=== PATIENT | male | born 1960 | race Caucasian/White ===

== ENCOUNTER 2018-09-27 15:29 | Outpatient (CLI) | payer OTHER ==
[2018-09-27 19:01] LABS: BASOPHILS % (AUTO) 0.3 %; EOSINOPHILS # (AUTO) 0.1 10^3/uL (0.0-0.7); EOSINOPHILS % (AUTO) 1.1 %; HGB - HEMOGLOBIN 14.8 g/dL (14.0-18.0); LYMPHOCYTES # (AUTO) 2.4 10^3/uL (1.5-3.5); LYMPHOCYTES % (AUTO) 41.9 %; MEAN CORPUSCULAR HEMOGLOBIN 29.5 pg (27.0-31.0); MEAN CORPUSCULAR VOLUME 89.3 fL (80.0-94.0); MEAN PLATELET VOLUME 7.2 fL (7.4-11.4); MONOCYTES # (AUTO) 0.4 10^3/uL (0.0-1.0); MONOCYTES % (AUTO) 7.7 %; NEUTROPHILS # (AUTO) 2.8 10^3/uL (1.5-6.6); PLT - PLATELET COUNT 301 10^3/uL (130-450); RED BLOOD COUNT 5.01 10^6/uL (4.70-6.10); RED CELL DISTRIBUTION WIDTH 13.7 % (12.0-15.0); WHITE BLOOD COUNT 5.7 x10^3/uL (4.8-10.8)
[2018-09-27 19:13] LABS: ALBUMIN 4.3 g/dL (3.2-5.5); ALBUMIN/GLOBULIN RATIO 1.3 (1.0-2.2); ALKALINE PHOSPHATASE 82 IU/L (42-121); ALT ALANINE AMINOTRANSFERASE 39 IU/L (10-60); AST ASPARTATE AMINOTRANSFERASE 27 IU/L (10-42); BILIRUBIN,TOTAL 0.8 mg/dL (0.2-1.0); BUN - BLOOD UREA NITROGEN 17 mg/dL (6-20); CALCIUM 9.2 mg/dL (8.5-10.3); CARBON DIOXIDE - CO2 24 mmol/L (21-32); CHLORIDE 100 mmol/L (101-111); CHOLESTEROL 236 mg/dL; CREATININE 0.8 mg/dL (0.6-1.2); GFR - MDRD 100 (>89); GLUCOSE 88 mg/dL (70-100); HDL CHOLESTEROL 47 mg/dL; LDL CHOLESTEROL,CALCULATED 168 mg/dL; LDL/HDL RATIO 3.6 (<3.6); SODIUM 136 mmol/L (135-145); TOTAL PROTEIN 7.5 g/dL (6.7-8.2); VLDL CHOLESTEROL 21 mg/dL
== END 2018-09-27 23:59 ==
LOC: LAB.WCP 15:29
PROVIDERS: ATTEND Family Medicine
DX: Z00.00 Encounter for general adult medical examination without abnormal findings (principal); Z12.5 Encounter for screening for malignant neoplasm of prostate
CPT/HCPCS: 36415; 80053; 80061; 83721; 84153; 84443; 85025

== ENCOUNTER 2018-10-14 09:11 | Outpatient (CLI) | payer BC, OTHER | END 2018-10-14 09:12 | disposition home or self-care (01) | LOC: RT 09:11 | PROVIDERS: ATTEND Orthopaedic Surgery | DX: Z01.818 Encounter for other preprocedural examination (principal); S76.112A Strain of left quadriceps muscle, fascia and tendon, initial encounter; M23.92 Unspecified internal derangement of left knee | CPT/HCPCS: 93005 ==

== ENCOUNTER 2019-12-01 08:00 | Outpatient (CLI) | payer BC, OTHER ==
[2019-12-01 18:30] LABS: BASOPHILS % (AUTO) 0.2 %; EOSINOPHILS # (AUTO) 0.1 10^3/uL (0.0-0.7); EOSINOPHILS % (AUTO) 0.8 %; HGB - HEMOGLOBIN 14.7 g/dL (14.0-18.0); LYMPHOCYTES # (AUTO) 2.3 10^3/uL (1.5-3.5); LYMPHOCYTES % (AUTO) 34.2 %; MEAN CORPUSCULAR HEMOGLOBIN 29.1 pg (27.0-31.0); MEAN CORPUSCULAR HGB CONC 32.5 g/dL (32.0-36.0); MEAN CORPUSCULAR VOLUME 89.3 fL (80.0-94.0); MEAN PLATELET VOLUME 9.7 fL (7.4-11.4); MONOCYTES # (AUTO) 0.5 10^3/uL (0.0-1.0); MONOCYTES % (AUTO) 7.4 %; NEUTROPHILS # (AUTO) 3.8 10^3/uL (1.5-6.6); NEUTROPHILS % (AUTO) 57.1 %; PLT - PLATELET COUNT 303 10^3/uL (130-450); RED BLOOD COUNT 5.06 10^6/uL (4.70-6.10); RED CELL DISTRIBUTION WIDTH 13.3 % (12.0-15.0); WHITE BLOOD COUNT 6.6 x10^3/uL (4.8-10.8)
[2019-12-01 18:52] LABS: ALBUMIN 4.5 g/dL (3.2-5.5); ALBUMIN/GLOBULIN RATIO 1.5 (1.0-2.2); ALKALINE PHOSPHATASE 78 IU/L (42-121); ALT ALANINE AMINOTRANSFERASE 37 IU/L (10-60); AST ASPARTATE AMINOTRANSFERASE 26 IU/L (10-42); BUN - BLOOD UREA NITROGEN 15 mg/dL (6-20); CALCIUM 9.2 mg/dL (8.5-10.3); CARBON DIOXIDE - CO2 24 mmol/L (21-32); CHLORIDE 103 mmol/L (101-111); CHOL/HDL RATIO 6.2 (<5.0); CHOLESTEROL 246 mg/dL; GFR - MDRD 77 (>89); GLUCOSE 100 mg/dL (70-100); HDL CHOLESTEROL 40 mg/dL; LDL CHOLESTEROL,CALCULATED 181 mg/dL; LDL/HDL RATIO 4.5 (<3.6); SODIUM 135 mmol/L (135-145); TOTAL PROTEIN 7.5 g/dL (6.7-8.2); VLDL CHOLESTEROL 25 mg/dL
== END 2019-12-01 23:59 | disposition home or self-care (01) ==
LOC: LAB.WCP 08:00
PROVIDERS: ATTEND Family Medicine
DX: R07.9 Chest pain, unspecified (principal); E78.5 Hyperlipidemia, unspecified; R97.20 Elevated prostate specific antigen [PSA]
CPT/HCPCS: 36415; 80053; 80061; 83721; 84153; 84484; 85025

== ENCOUNTER 2019-12-01 15:18 | Outpatient (CLI) | payer BC, OTHER ==
--- NOTE | 2019-12-02 08:38 | XRAY Report ---
Reason: CHEST PAIN Procedure Date: 12/01/2019 Accession Number: [id number] / [id number] Procedure: XR - Chest 2 View X-Ray CPT Code: 01458 Final Report FULL RESULT: EXAM: CHEST RADIOGRAPHY EXAM DATE: 12/01/2019 03:36 PM. CLINICAL HISTORY: Chest pain. COMPARISON: None. TECHNIQUE: 2 views. FINDINGS: Lungs/Pleura: No focal opacities evident. No pleural effusion. No pneumothorax. Normal volumes. Mediastinum: Cardiac silhouette is borderline enlarged. Mediastinal contour and primary vasculature are within normal limits. Other: None. IMPRESSION: 1. Borderline enlargement of the cardiac silhouette. 2. No acute cardiopulmonary abnormality. RADIA
== END 2019-12-01 15:19 | disposition home or self-care (01) ==
LOC: DI 15:18
PROVIDERS: ATTEND Family Medicine
DX: R07.9 Chest pain, unspecified (principal); I51.7 Cardiomegaly; E78.5 Hyperlipidemia, unspecified; R97.20 Elevated prostate specific antigen [PSA]
CPT/HCPCS: 36415; 71046; 80053; 80061; 84153; 84484; 85025

== ENCOUNTER 2020-02-01 08:00 | Outpatient (CLI) | payer BC, OTHER ==
--- NOTE | 2020-02-01 15:03 | XRAY Report ---
Reason: ACUTE BRONCHOSPASM Procedure Date: 02/01/2020 Accession Number: [id number] / [id number] Procedure: WCP - Chest 2 View X-Ray CPT Code: 63634 Final Report FULL RESULT: EXAM: CHEST RADIOGRAPHY EXAM DATE: 02/01/2020 09:53 AM. CLINICAL HISTORY: ACUTE BRONCHOSPASM, shortness of breath. COMPARISON: CHEST 2 VIEW 12/01/2019 3:28 PM. TECHNIQUE: 2 views. FINDINGS: Lungs/Pleura: No focal opacities evident. No pleural effusion. No pneumothorax. Normal volumes. Mediastinum: Heart and mediastinal contours are unremarkable. Other: None. IMPRESSION: Normal 2-view chest radiography. RADIA
== END 2020-02-01 23:59 | disposition home or self-care (01) ==
LOC: DI.WCP 08:00
PROVIDERS: ATTEND Family Medicine
DX: J98.01 Acute bronchospasm (principal)
CPT/HCPCS: 71046

== ENCOUNTER 2020-04-26 10:39 | Outpatient (CLI) | payer BC, OTHER | END 2020-04-26 23:59 | disposition home or self-care (01) | LOC: LAB.WCP 10:39 | PROVIDERS: ATTEND Family Medicine | DX: E29.8 Other testicular dysfunction (principal) | CPT/HCPCS: 36415; 84403 ==

== ENCOUNTER 2020-05-31 16:22 | Outpatient (CLI) | payer BC, OTHER ==
[2020-05-31 17:11] VITALS: BP 127/78
--- NOTE | 2020-05-31 17:11 | SLEEP CARE CONSULTATION ---
Information from patient questionnaire entered by Christina Santana. I have reviewed and concur with the information entered by Christina Santana. This document represents the service I personally performed and the decisions made by me, Olivia Menon ARNP. History of Present Illness Service Date and Time: 05/31/2020 1622 Reason for Visit: New patient, Previously diagnosed sleep apnea, sleep apnea on CPAP therapy Chief Complaint: reports: Unrefreshed sleep, Snoring, Excessive daytime sleepiness, Observed pauses in breathing, Frequent awakenings at night, Other (Recommended from warehouse coordinator). denies: Insomnia, Fatigue Date of Onset: 10+ years Usual bedtime: 0800 Time it takes to fall asleep: 30 minutes Snores at night: Yes Observed to quit breathing while asleep: Yes Sleeps alone due to snoring: No (sometimes) Number of times waking at night: 2 + Reasons for waking at night: reports: Choking, Snoring, Gasping for air, Bathroom Toss, Turn, or Twitch while sleeping: Yes Recalls having dreams: Yes Usually gets out of bed at: 1-2 pm Feels refreshed in the morning: No Morning headache: Yes (water helps; every day about an hour) Sleepy or fatigued during the day: Yes Ever fallen asleep while driving: No Takes day naps: Yes (nightly at work for 30 minutes) Dreams during day naps: No Prior sleep studies: Yes Year and Where: 2010 - [facility] Type of Sleep Study: Polysomnography Additional HPI information: TAYLOR CONNORS was diagnosed to have mild, AHI 5.1 with a marisol oxygen saturation of 86%, obstructive sleep apnea-hypopnea syndrome in 2010 at [facility]. His titration study showed good apnea control on 6 cm H2O. He was set up on CPAP but eventually stopped using it. He used it for a month before his surgery in 2018 on his back because the anesthesiologist told him he had to before he could have the surgery done. He then stopped using it again until his warehouse coordinator suggested he restart his CPAP use due to his heart arrhythmia of pause in his heart beats. He tried to use it about a month ago fro 2-3 days but the mask did not fit well to his face. He thinks this may be due to the 40 pounds he has gained over the last several years. He works at [employer] on 3rd shift and normally gets about 5 hours of sleep daily. He gets home about 6 AM and gets to sleep about 8 AM and then up again about 1-2 PM on work days. He will sleep until 3-4 on days off. He is about to stop working at [employer] in about 2 weeks. He is back for re-evaluation of his diagnosis and restarting of CPAP therapy as needed. - Parasomnia Symptoms Ever been unable to move upon waking from sleep: No Walks in sleep: No Talks in sleep: No Ever acted out dreams in sleep: No Ever felt weak in the knees when startled or emotional: No Bothered by creepy, crawly, restless sensations in legs: Yes (at night sometimes will wake him up; used to shake leg at night to sleep) Problems with memory or concentration: No Subjective Initial Conway Sleepiness Scale score: 8 (in 2010) Current [place] Sleepiness Scale score: 17 (in 2019) Past Medical History Past Medical History: reports: Arrythmia. denies: Hypertension, Claustrophobia, Congestive Heart Failure, Diabetes, Stroke, Coronary Heart Disease, Hypothyroidism, Anemia, Anxiety, Impotence, Depression, Mood disorder, GERD, Attention deficit Social History The patient's occupation is a [employer]. Patient is and lives in [place]. Have you smoked in the past 12 months: No Alcohol use: Yes Alcohol amount and frequency: 1-2 beers occasionally Caffeine use: Yes Caffeine amount and frequency: 3-4 cups a day Family History Family history of sleep disordered breathing: No Allergies and Home Medications Drug allergies reviewed: Yes (amoxicillin) Home medication list reviewed: Yes Allergy and home medication list: atorvastatin calcium 20 mg testosterone 50mg/5Gm 1 % daily (for last month) Review of Systems Weight gain over past 5 years: 40 Cardiovascular: reports: irregular heart rate or pulse (skips a beat once in a while). denies: high blood pressure, palpitations, chest pain, leg or foot swelling Respiratory: denies: shortness of breath Gastrointestinal: denies: heartburn, difficulty swallowing Urinary: denies: impotence Neurological: reports: headaches. denies: seizure, head trauma, speech dysfunction, gait or balance problems Psychiatric: denies: Attention Deficit Hyperactivity, anxiety, depression, mood disorder Ear/Nose/Throat: reports: sinus problems (sinus polyps removed many years ago), injury to nose (several broken noses when younger), wisdom teeth removed. denies: nasal congestion, nose bleeds, dry mouth/throat, hoarseness, tonsillectomy Endocrine: denies: thyroid disease Musculoskeletal: reports: joint pain, back pain, muscle pain or cramping Immunologic: denies: allergies to food or environment Physical Exam Blood Pressure: 127/78 Cuff size: long Heart Rate: 85 O2 Saturation: 98 Height: 5 ft 10 in Weight: 284 lb Body Mass Index: 40.7 BMI Classification: Morbidly Obese Neck circumference: 19.3 (inches) HEENT: No craniofacial malformation Nostrils: patent to airflow Turbinates: normal Septum: midline Mouth and throat: narrow oropharynx Uvula visualization: 25% Mallampati Class III Tongue: normal in size Tonsils: 2+ Chin and jaw: normal size and position Neck: normal w/o lymphadenopathy or thyromegaly Heart: regular rate and rhythm Lungs: clear bilaterally Impression and Plan 1. Suspected Obstructive Sleep Apnea-Hypopnea Syndrome, as previously diagnosed. It is also suggested by a history and continuance of loud and irregular snoring, observed cessation of breath while asleep, gasping or choking in sleep, morning headache, frequent awakening during the night, unrefreshed sleep, and excessive daytime sleepiness. I reviewed with patient that a narrow oropharynx and obesity are common predisposing factors for obstructive sleep apnea-hypopnea syndrome. Patient has not used the CPAP machine consistently in the last 6-12 months. We will need to have him repeat the polysomnography to confirm the diagnosis and to assess severity. I reviewed the pathophysiology of obstructive sleep apnea- hypopnea syndrome with the patient and the health risks of cardiovascular and cerebrovascular disease if not treated. Patient agreed to plan. * Schedule polysomnography +- manual CPAP titration study and return in 1-2 weeks after the study to discuss result and initiate therapy. * Avoid long distance driving or driving when feeling sleepy. * Avoid alcohol, sedative and muscle relaxant around bedtime. * Attempt to lose weight. * Review instructions provided by trained office staff on how to prepare for the sleep study. * Return for follow-up after sleep study completed. Time Spent with Patient (minutes): 36
== END 2020-05-31 16:23 | disposition home or self-care (01) ==
LOC: SC 16:22
PROVIDERS: ATTEND Nurse Practitioner Family
DX: G47.33 Obstructive sleep apnea (adult) (pediatric) (principal); I49.9 Cardiac arrhythmia, unspecified; E66.01 Morbid (severe) obesity due to excess calories; Z68.41 Body mass index [BMI] 40.0-44.9, adult
CPT/HCPCS: 99204; 99212

== ENCOUNTER 2020-07-03 10:07 | Outpatient (CLI) | payer BC, OTHER ==
[2020-07-03 12:23] LABS: CHOL/HDL RATIO 3.9 (<5.0); CHOLESTEROL 174 mg/dL; HDL CHOLESTEROL 45 mg/dL; LDL CHOLESTEROL,CALCULATED 108 mg/dL; LDL/HDL RATIO 2.4 (<3.6); VLDL CHOLESTEROL 21 mg/dL
== END 2020-07-03 23:59 | disposition home or self-care (01) ==
LOC: LAB.WCP 10:07
PROVIDERS: ATTEND Internal Medicine Cardiovascular Disease
DX: E78.5 Hyperlipidemia, unspecified (principal)
CPT/HCPCS: 36415; 80061; 83721

== ENCOUNTER 2020-07-12 09:13 | Outpatient (CLI) | payer BC, OTHER | END 2020-07-12 09:14 | disposition home or self-care (01) | LOC: SC 09:13 | PROVIDERS: ATTEND Nurse Practitioner Family | DX: Z53.9 Procedure and treatment not carried out, unspecified reason (principal) ==

== ENCOUNTER 2020-11-10 20:35 | Outpatient (CLI) | payer BC, OTHER | END 2020-11-10 20:36 | disposition home or self-care (01) | LOC: SC 20:35 | PROVIDERS: ATTEND Nurse Practitioner Family | DX: G47.33 Obstructive sleep apnea (adult) (pediatric) (principal); G47.61 Periodic limb movement disorder; E66.01 Morbid (severe) obesity due to excess calories; Z68.41 Body mass index [BMI] 40.0-44.9, adult | CPT/HCPCS: 95810 ==

== ENCOUNTER 2020-11-19 07:46 | Outpatient (CLI) | payer BC, OTHER ==
--- NOTE | 2020-11-19 08:18 | SLEEP CARE CONSULTATION ---
Information from patient questionnaire entered by Christina Santana. I have reviewed and concur with the information entered by Christina Santana. This document represents the service I personally performed and the decisions made by , Olivia Menon ARNP. History of Present Illness Service Date and Time: 11/19/2020 0746 Initial Chilton Sleepiness Scale score: 8 (in 2010) Current [place] Sleepiness Scale score: 12 Additional HPI information: TAYLOR CONNORS returns for follow up and results of the recently performed polysomnography. I explained the pathophysiology behind obstructive sleep apnea. We then spent quite a bit of time discussing different treatment options. For mild obstructive sleep apnea, surgery and oral appliance are alternatives to nasal CPAP therapy but in moderate or severe cases, nasal CPAP is the most effective and reliable treatment. Because apnea is primarily in supine position, then positional management therapy could be effective. Methods discussed such as positioning with pillows, using a T-shirt with tennis balls in the back, and shown commercial products that have a pillow format on back to prevent supine sleep. I reviewed the impact of weight changes on sleep apnea and strongly recommended losing weight. After some discussion, the patient opted to go with the nasal CPAP therapy. Nasal autoCPAP set at 4-15 cmH20 will be ordered with rationale explained. A manual titration study will be ordered if unable to find optimal pressure with office adjustments. I explained how CPAP machine works with sample devices [employer] Dreamstation and [employer] [id number] and what to expect when using the machine. Using CPAP every night in order to get used to it was emphasized. If snoring or perceives is not getting enough air or too much air from the machine, notify this office. Patient counseled not drink alcohol less than 4 hours before bedtime as it can increase snoring and apnea. Patient was cautioned about risks of drowsy driving until sleepiness symptoms resolve. Sleep Study - Results Type of Sleep Study: Polysomnography Prior sleep studies: Yes Year and Where: 2010 - [facility] - Discussion Sleep Study discussion: IMPRESSION: The quality of the study is good. The patient had normal sleep efficiency. The sleep architecture was normal as well. Respiratory monitoring showed moderate obstructive sleep apnea-hypopnea (AHI = 18.9) associated with frequent oxyhemoglobin desaturation and moderate hypoxia (marisol oxygen saturation of 78%) but not sleep fragmentation. The respiratory events occurred almost exclusively during supine sleep (supine AHI = 28.0; non-supine = 4.59). Snore was loud in intensity. There was mild periodic leg movement of sleep not associated with sleep fragmentation. Cardiac rhythm was normal sinus rhythm without significant arrhythmia. No abnormal behavior (parasomnia) observed during the night. Allergies and Home Medications Drug allergies reviewed: Yes (amoxicillin) Home medication list reviewed: Yes (no changes) Review of Systems Review of systems same as previous: Yes (no changes) Physical Exam Heart Rate: 67 O2 Saturation: 97 Height: 5 ft 10 in Weight: 288 lb Body Mass Index: 41.3 BMI Classification: Morbidly Obese Impression and Plan 1. Obstructive Sleep Apnea-Hypopnea Syndrome, moderate, with lowest oxygen saturation of 78%. Obviously this is the cause of the patients symptoms of unrefreshed sleep, and excessive daytime sleepiness. Positive pressure therapy could benefit his heart arrhythmia. As mentioned above, the patient will be started on nasal autoCPAP therapy with pressure set at 4-15 cmH2O. A manual titration study will be completed if unable to find optimal treatment pressure with office adjustments. Compliance guidelines also reviewed. A copy of compliance guidelines will be given for reference at check out. Because the apnea is more severe supine, I instructed to avoid sleeping supine using pillow positioning until able to start CPAP use. * Nasal auto CPAP therapy, pressure at 4-15 cm H2O. * Attempt to lose weight. * Avoid alcohol consumption near bedtime. * Avoid supine sleep until using CPAP. * The patient is again cautioned about driving until sleepiness completely resolves. * Return one month after CPAP obtained. I will assess response to therapy and compliance at that time. Counseling Topics: Weight loss health impact Visit Type: In Office Time Spent with Patient (minutes): 20 Provider Statement: I spent 100% of the Face to Face Visit with the patient with greater than 50% spent counseling the patient and coordination of care.
== END 2020-11-19 07:47 | disposition home or self-care (01) ==
LOC: SC 07:46
PROVIDERS: ATTEND Nurse Practitioner Family
DX: G47.33 Obstructive sleep apnea (adult) (pediatric) (principal); E66.01 Morbid (severe) obesity due to excess calories; Z68.41 Body mass index [BMI] 40.0-44.9, adult
CPT/HCPCS: 99212; 99213

== ENCOUNTER 2021-05-14 12:59 | Outpatient (CLI) | payer BC, OTHER ==
--- NOTE | 2021-05-14 16:45 | XRAY Report ---
PROCEDURE: Cervical Spine 2 View INDICATIONS: CERVICAL RADICULOPATHY, LEFT TECHNIQUE: 3 view(s) of the cervical spine were acquired. COMPARISON: None. FINDINGS: Bones: No fractures or dislocations to the C7-T1 level. There is straightening of normal cervical l ordosis. Mild degenerative endplate changes are noted at C4-5 through C6-7 levels. The lateral masses of C1 appear intact on the odontoid view. No suspicious bony lesions. Soft tissues: No prevertebral soft tissue swelling. IMPRESSION: Mild degenerative disc disease in mid to lower cervical spine. No fracture or dislocatio n. Reviewed by: Nitin Fernandez MD on 05/14/2021 4:44 PM PDT Approved by: Nitin Fernandez MD on 05/14/2021 4:44 PM PDT Station ID: [id number]
== END 2021-05-14 13:00 | disposition home or self-care (01) ==
LOC: DI.N 12:59
PROVIDERS: ATTEND Family Medicine
DX: M50.121 Cervical disc disorder at C4-C5 level with radiculopathy (principal)